=== PATIENT | male | born 1985 | race Caucasian/White ===

== ENCOUNTER 2017-07-11 11:44 | Emergency (ER) | payer BC ==
[2017-07-11] MEDS ORDERED: Alum Hydroxide/Mag Hydroxide 30 ML, Lidocaine 2% 15 ML PO ONE ×2 (11:57)
--- NOTE | 2017-07-11 12:47 | EDM.PDOC ---
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), lifting box in garage and had pain at his L subcostal margin with lifting inc'd with bending and movement no n/v, no f/c/d, no sob/cough still present today, inc'd when he bent over to put his child in a stroller also nonspecific numb in LUE not seen an MD in 9y, in ED for lac 9y ago, had labs 1y ago when stopped chewing tobacco and asked him to get life insurance, HDL low and TG high then nonsmoker FH with father with inc'd chol, PGM age less than 65 that may have been cardiac, MGM with 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 yr pt went to urgent care and then sent here, still had sharp pain at L subcostal margin relieved with GI cocktail x 1, feels fine now - Related Data Allergies Allergy/AdvReac Type Severity Reaction Status Date / Time No Known Allergies Allergy Verified 07/11/17 12:10 Home Meds: Home Meds NK [No Known Home Meds] 07/11/17 [History] ED ROS GENERAL - Review of Systems Review Of Systems: See Below Constitutional: Reports: No Symptoms HEENT: Reports: No Symptoms Respiratory: Reports: Other (L lower rib pain) Cardiovascular: Reports: No Symptoms Endocrine: Reports: No Symptoms GI/Abdominal: Reports: No Symptoms : Reports: No Symptoms Musculoskeletal: Reports: No Symptoms Skin: Reports: No Symptoms Neurological: Reports: No Symptoms Psychiatric: Reports: No Symptoms Hematologic/Lymphatic: Reports: No Symptoms Immunologic: Reports: No Symptoms ED EXAM, GI/ABD - Physical Exam Exam: See Below Exam Limited By: No Limitations General Appearance: Alert, WD/WN, No Apparent Distress Nose: Normal Inspection, Normal Mucosa, No Blood Throat/Mouth: Normal Inspection, Normal Voice, No Airway Compromise Head: Atraumatic, Normocephalic Neck: Normal Inspection, Supple, Non-Tender, Full Range of Motion. No: Carotid Bruit Respiratory/Chest: No Respiratory Distress, Lungs Clear, Normal Breath Sounds, No Accessory Muscle Use, Chest Non-Tender Cardiovascular: Regular Rate, Rhythm, No Edema, No Gallop, No Murmur, No Rub GI/Abdominal Exam: Normal Bowel Sounds, Soft, Non-Tender, No Organomegaly, No Distention, No Mass, Other (NT throughout, sternum and L ribs NT, no CVAT b/l) Back Exam: Normal Inspection, Full Range of Motion, NT Extremities: Normal Inspection, Normal Range of Motion, Non-Tender, No Pedal Edema Neurological: Alert, Oriented, CN II-XII Intact, Normal Cognition, No Motor/ Sensory Deficits Psychiatric: Normal Affect, Normal Mood Skin Exam: Warm, Dry, Intact, Normal Color, No Rash Lymphatic: No Adenopathy Course - Orders/Labs/Meds Orders: Active Orders 24 hr Category Date Time Status EKG Documentation Completion [RC] ASDIRECTED Care 07/11/17 11:58 Active Chest 2V [CR] Stat Exams 07/11/17 11:58 Taken EKG 12 Lead [EK] Routine Ther 07/11/17 11:58 Ordered Labs: Laboratory Tests 07/11/17 07/11/17 07/11/17 Range/Units 12:55 12:55 12:55 WBC 4.9 (4.5-12.0) X10-3/uL RBC 5.00 (4.30-5.75) x10(6)uL Hgb 14.8 (11.5-15.5) g/dL Hct 42.5 (30.0-51.3) % MCV 85.0 (80-96) fL MCH 29.7 (27.7-33.6) pg MCHC 34.9 (32.2-35.4) g/dL RDW 12.8 (11.5-15.5) % Plt Count 226 (125-369) X10(3)uL MPV 8.0 (7.4-10.4) fL Neut % (Auto) 59.8 (46-82) % Lymph % (Auto) 27.3 (13-37) % [place] % (Auto) 8.3 (4-12) % Eos % (Auto) 4 (1.0-5.0) % Baso % (Auto) 1 (0-2) % Neut # (Auto) 3.0 (1.6-8.3) # Lymph # (Auto) 1.3 (0.6-5.0) # [place] # (Auto) 0.4 (0.0-1.3) # Eos # (Auto) 0.2 (0.0-0.8) # Baso # (Auto) 0.0 (0.0-0.2) # D-Dimer, Quantitative (100-400) ng/mL Sodium 136 (135-145) mmol/L Potassium 4.5 (3.5-5.3) mmol/L Chloride 103 (100-110) mmol/L Carbon Dioxide 29 (23-29) mmol/L BUN 12 (5-20) mg/dL Creatinine 1.2 (0.6-1.3) mg/dL Est Cr Clr Drug Dosing TNP Estimated GFR (MDRD) > 60 (>60) BUN/Creatinine Ratio 10.0 (9-20) Glucose 101 (80-116) mg/dL Calcium 9.3 (8.6-10.2) mg/dL Total Bilirubin 0.5 (0.1-1.3) mg/dL AST 19 (5-27) IU/L ALT 19 (14-26) IU/L Alkaline Phosphatase 51 L (56-112) IU/L Troponin I < 0.01 L (0.02-0.06) NG/ML C-Reactive Protein 1.3 H (0.0-1.0) mg/dL Total Protein 6.9 (6.0-8.0) g/dL Albumin 4.1 (3.5-5.2) g/dL Globulin 2.8 g/dL Albumin/Globulin Ratio 1.5 Amylase (28-100) U/L 07/11/17 07/11/17 Range/Units 12:55 12:55 WBC (4.5-12.0) X10-3/uL RBC (4.30-5.75) x10(6)uL Hgb (11.5-15.5) g/dL Hct (30.0-51.3) % MCV (80-96) fL MCH (27.7-33.6) pg MCHC (32.2-35.4) g/dL RDW (11.5-15.5) % Plt Count (125-369) X10(3)uL MPV (7.4-10.4) fL Neut % (Auto) (46-82) % Lymph % (Auto) (13-37) % [place] % (Auto) (4-12) % Eos % (Auto) (1.0-5.0) % Baso % (Auto) (0-2) % Neut # (Auto) (1.6-8.3) # Lymph # (Auto) (0.6-5.0) # [place] # (Auto) (0.0-1.3) # Eos # (Auto) (0.0-0.8) # Baso # (Auto) (0.0-0.2) # D-Dimer, Quantitative < 100 L (100-400) ng/mL Sodium (135-145) mmol/L Potassium (3.5-5.3) mmol/L Chloride (100-110) mmol/L Carbon Dioxide (23-29) mmol/L BUN (5-20) mg/dL Creatinine (0.6-1.3) mg/dL Est Cr Clr Drug Dosing Estimated GFR (MDRD) (>60) BUN/Creatinine Ratio (9-20) Glucose (80-116) mg/dL Calcium (8.6-10.2) mg/dL Total Bilirubin (0.1-1.3) mg/dL AST (5-27) IU/L ALT (14-26) IU/L Alkaline Phosphatase (56-112) IU/L Troponin I (0.02-0.06) NG/ML C-Reactive Protein (0.0-1.0) mg/dL Total Protein (6.0-8.0) g/dL Albumin (3.5-5.2) g/dL Globulin g/dL Albumin/Globulin Ratio Amylase 49 (28-100) U/L Meds: Medications Discontinued Medications Generic Name Dose Route Start Last Admin Trade Name Freq PRN Reason Stop Dose Admin Al Hydroxide/Mg Hydroxide 30 0 ml 07/11/17 11:57 07/11/17 12:15 ml/ Lidocaine HCl 15 ml PO 07/11/17 11:58 30 ml ONETIME ONE Administration - Re-Assessments/Exams Free Text/Narrative Re-Assessment/Exam: 07/11/17 14:22 d-dimer slight inc'd at 1.3, labs & EKG & CxR otherwise neg, pt does report inc' d pain with DB asked re GERD sxs, she is a pharmacist, prefers to use PPI OTC Departure - Departure Time of Disposition: 14:23 Disposition: Home, Self-Care 01 Condition: Good Clinical Impression: Pleurisy, Elevated C-reactive protein (CRP) - Discharge Information Instructions: Pleurisy, Gastroesophageal Reflux Disease, Adult Referrals: Eleazar Cummings MD [Primary Care Provider] - Forms: ED Department Discharge Additional Instructions: To decrease inflammation and promote healing, take ibuprofen 200 mg 4 tabs 3 times a day for 3 days, longer if needed. To decrease acid production, take omeprazole 20 mg 1 tab daily for 2 weeks. To neutralize acid, take liquid antacid 30 cc every 4 hours as needed for heartburn. May work. Return to ED if you are feeling worse. See your doctor in 2-3 days. Call your Physician or Return to Emergency Department if: * Your condition worsens in any way. * You develop fever greater than 100.4. * You have vomitting that does not stop with medications. * You have pain that is not controlled with medications. - My Orders Last 24 Hours: My Active Orders 07/11/17 11:58 EKG Documentation Completion [RC] ASDIRECTED Chest 2V [CR] Stat EKG 12 Lead [EK] Routine - Assessment/Plan Last 24 Hours: My Active Orders 07/11/17 11:58 EKG Documentation Completion [RC] ASDIRECTED Chest 2V [CR] Stat EKG 12 Lead [EK] Routine
--- NOTE | 2017-07-12 11:37 | CR ---
INDICATION: Epigastric pain. CHEST: PA and lateral views of the chest 07/11/2017, revealed the heart, mediastinum, and bony thorax to be unremarkable. Overlying EKG leads are noted. An active infiltrate or effusion was not identified. No free air is noted under the hemidiaphragm leaves. IMPRESSION: No active disease. MTDD
== END 2017-07-11 14:30 | disposition home or self-care (01) ==
LOC: FB.ED 11:44
DX: R09.1 Pleurisy (principal); R79.82 Elevated C-reactive protein (CRP)
CPT/HCPCS: 36415; 71020; 80053; 82150; 84484; 85025; 85379; 86140; 93005; 99285; A9270